=== PATIENT | female | born 1955 | race Caucasian/White ===

== ENCOUNTER 2018-09-30 20:41 | Inpatient (IN) | payer BC ==
[~2018-09-30] VITALS: Ht 152.4 cm; Wt 114.0 kg
[~2018-09-30 20:41] MED LIST: ADV100/50 IH; PROS INH; SYMBICORT INH; T3 PO; VITD PO
[2018-09-30 20:46] VITALS: Ht 152.4 cm; Wt 114.0 kg
--- NOTE | 2018-09-30 21:00 | NUR ---
PT PRESENTED TO ED FOR FRONTAL HEADACHE, INTERMITTENT DIZZINESS, GENERALIZED ABDOMINAL PAIN, "BLURRY VISION", SHAKINESS, AND "FLUTTERING" X 3 DAYS. PT STATES SHE HASNT TAKEN HER BLOOD PRESSURE MEDICATION FOR 3 WEEKS AND "I LOST IT MOVING FROM MY HOUSE TO MY DAUGHTERS HOUSE". PT STATES "I ALSO THINK I HAVE A URINARY TRACT INFECTION BECAUSE I HAVE INCREASED FREQUENCY AND IT HAS AN ODOR". PT STATES "MY RIGHT CALF GETS SWOLLEN ON AND OFF, ITS NOT BAD RIGHT NOW". PT IN NAD. BREATHING EVEN AND UNLABORED. PT A&0X4, SPEAKING FULL CLEAR SENTENCES. WILL CONTINUE TO MONITOR.
--- NOTE | 2018-09-30 21:01 | NUR ---
DR TURNER AT BEDSIDE FOR MSE.
--- NOTE | 2018-09-30 21:10 | NUR ---
PT AMBULATED TO RESTROOM WITH STEADY GAIT TO PROVIDE URINE SAMPLE.
--- NOTE | 2018-09-30 21:16 | NUR ---
LAB AT BEDSIDE
[2018-09-30 21:20] LABS: microscopic required? NO
[2018-09-30 21:27] LABS: UA SPECIFIC GRAVITY 1.025 (1.005-1.035); urine erythrocyte NEGATIVE (NEGATIVE)
[2018-09-30 21:30] LABS: BASOPHIL % 0.6 % (0-2); PLATELET COUNT 236 x10^3mcL (130-400); RED CELL DISTRIBUTION WIDTH 13.7 % (11.5-14.5)
[2018-09-30 21:36] LABS: CALCIUM 9.1 mg/dL (8.5-10.1); CARBON DIOXIDE 27.4 mmol/L (21-32); CHLORIDE SERUM 109 mmol/L (98-107); CREATININE SERUM 0.9 mg/dL (0.6-1.0); GFR1 > 60 mL/min; GLUCOSE SERUM 107 mg/dL (74-106); POTASSIUM SERUM 3.9 mmol/L (3.5-5.1); SODIUM SERUM 145 mmol/L (136-145)
--- NOTE | 2018-09-30 21:38 | NUR ---
EKG IN PROGRESS AT BEDSIDE BY EMT ROBERT.
[2018-09-30 21:47] LABS: ALBUMIN 3.5 g/dL (3.4-5.0); ALKALINE PHOSPHATASE 103 U/L (46-116); ALT/SGPT 32 U/L (14-59); AST/SGOT 16 U/L (15-37); BILIRUBIN TOTAL 0.2 mg/dL (0.20-1.00); FREE T4 1.07 ng/dL (0.76-1.46); LIPASE 80 IU/L (73-393)
--- NOTE | 2018-09-30 22:15 | NUR ---
ULTRASOUND AT BEDSIDE
--- NOTE | 2018-09-30 23:15 | NUR ---
PT TO CT VIA [facility] AT THIS TIME.
[2018-09-30] MEDS ORDERED: NOR10T PO (23:16)
[2018-09-30] MEDS ORDERED: LOSARTAN POTASS25 M1 PO (23:16)
[2018-09-30] MEDS ORDERED: VENLAFAXINE25 MG (23:17)
[2018-09-30] MEDS ORDERED: LORAZEPAM0.5 MG PO (23:18)
--- NOTE | 2018-09-30 23:35 | NUR ---
CALLED INTO CT FOR PT BEING ANXIOUS AND ATTEMPTING TO REFUSE CT SCAN. PT NOTED TO BE SHAKING AND STATING THAT SHE IS VERY CLAUSTROPHOBIC. PT GIVEN 1MG ATIVAN IVP PER DR YUE MANLEY. PT ASSISTED THROUGH CT SCAN SUCCESSFULLY.
--- NOTE | 2018-09-30 23:41 | NUR ---
REPORT GIVEN TO ALEXA FINN
--- NOTE | 2018-10-01 | NUR ---
PT TRANSFERRED TO [facility] BY [facility] BY MYSELF AND PORSCHE EMT. PT ON FULL CM FOR TRANSPORT. PT ACCEPTED BY GORAN RN TO ASSUME PT CARE. PT AOX4, RESP EVEN AND UNLABORED, NO ACUTE DISTRESS NOTED. PT AMBULATED FROM [facility] TO BED WITHOUT INCIDENT.
[2018-10-01 00:28] VITALS: BP 180/73
--- NOTE | 2018-10-01 00:31 | NUR ---
RECEIVED PT FROM ED VIA JIM. ORIENTED PT TO ROOM AND SURROUNDINGS. IV NOTED TO PATENT AND INTACT. TELE 22 PLACED ON PT READING NSR. INSTRUCTED PT ON THE USE OF CALL LIGHT FOR ASSISTANCE. ENDORSED PT TO PRIMARY NURSE GORAN
--- NOTE | 2018-10-01 00:31 | NUR ---
PT STATED WANTS TO EAT, STATED NEEDS NORCO 10/325MG FOR HER BACK PAIN. BP 180/73. INFORMED DR. LERNER
[2018-10-01 00:41] LABS: MAGNESIUM 1.9 mg/dL (1.8-2.4)
[2018-10-01 00:42] LABS: CHOLESTEROL/HDL RATIO 2.5
[2018-10-01 01:04] VITALS: BP 125/49
--- NOTE | 2018-10-01 01:16 | NUR ---
DR. LERNER WAS IN PT'S ROOM INFORMED BP 125/49. HE STATED TO HOLD ORDERED COZAAR DUE AT THIS TIME. ADMINISTERED NORCOL 7.5/325MG TABLET PO FOR COMPLAINT OF 8/10 PAIN TO THE BACK.
[2018-10-01 02:18] LABS: AMPHETAMINE QUAL UR NONE DETECTED (See below)
--- NOTE | 2018-10-01 02:51 | NUR ---
eyes closed, breathing even and unlabored on room air. sinus rhythm on tele. hr 67/min. call light within easy reach.
--- NOTE | 2018-10-01 03:49 | NUR ---
eyes closed, breathing unlabored. snoring lightly. call light within easy reach.
[2018-10-01 04:45] VITALS: BP 156/67
--- NOTE | 2018-10-01 06:18 | NUR ---
AWAKE AND ALERT, WAS ASSISTED TO AMBULATE TO RESTROOM EARLIER BY DANIELLE BARRERA. BREATHING EVEN AND UNLABORED ON ROOM AIR. IVF OF NS AT 100ML/HR INFUSING WELL TO NEW IV SITE TO RIGHT FOREARM.
--- NOTE | 2018-10-01 07:13 | NUR ---
AWAKE AND ALERT, STATED COMFORTABLE AT THIS TIME. IVF INFUSING WELL. IV SITE FREE FROM ERYTHEMA OR SWELLING. ENDORSED TO NURSE GARCIA AND MAT
--- NOTE | 2018-10-01 07:15 | NUR ---
RECEIVED PT IN BED, AXOX4, VERBAL, NIUEAN, CALM AND COOPERATIVE, PERRLA, NO REDNESS/DRAINAGE, ON TELE #22, NSR, RESP EVEN AND NON-LANORED, CHEST RISE SYMMETRICALLY, DENIES PAIN/PRESSURE/N/V/NEWELL/DIZZINES/FAINT, ABD ROUND AND NON-TENDER TO TOUCH, AMBULATORY, CONTINENT, LAST BM 09/30/18, PALP PULSES, CAP REFIL < 3 S, BS ACTIVE X 4, CALL LIGHT IN REACH, BED AT LOW POSITION, RAILS X 2, ALL NEEDS MET, CONTINUE TO MONTIOR
--- NOTE | 2018-10-01 08:45 | NUR ---
PT IN BED, IN NO ACUTE DISTRESS, AM MED GIEVN PER MD ORDER VIA EMAR, TAKEN WELL, NO ADVERSED SIDE EFFECT NOTED AT THIS TIME, SAFETY PROTOCOL FOLLOWED, CONTINUE TO MONITOR
[2018-10-01 08:47] VITALS: BP 129/62
--- NOTE | 2018-10-01 09:30 | NUR ---
ECHOCARDIOGRAM DONE AT BED SIDE, PT IN NO ACUTE DISTRESS, CONTINUE TO MONTIOR
--- NOTE | 2018-10-01 10:45 | NUR ---
PT IN BED, IN NO ACUTE DISTRESS, REFILLED ICE WATER PER PT REQUEST, PT ASK FOR SPRITE, NOT CONTRAINDICATED WITH DIET, GIVEN, TAKEN WELL, CONTINUE TO MONITOR
--- NOTE | 2018-10-01 10:53 | NUR ---
I HAVE REVIEWED THE DATA COLLECTION BY HUMA RODRIGUEZ(NAME):MAT SAENZ ENTERED ON (DATE/TIME):10/01/18 AT 1053 I CONCUR WITH THE DATA AND ANY EXCEPTIONS OR COMMENTS ARE LISTED BELOW:
--- NOTE | 2018-10-01 10:56 | NUR ---
P.T. NOTES P.T. EVAL COMPLETED; NURSING TO [facility] AD [facility].
[2018-10-01 12:32] VITALS: BP 157/65
[2018-10-01 12:35] VITALS: BP 157/65
--- NOTE | 2018-10-01 13:47 | NUR ---
PT RESTING IN BED, VERBAL, IN NO ACUTE DISTRESS, RESP EVENAND NON-LABORED, DENIES PAIN/CP/PRESSURE, DENIES N/V/NEWELL, DC PAPER SIGNED AND PUT IN CHART, EDUCATION GIVEN, VERBALLY UNDERSTANDING, IV REMOVED TO (R) FA , IV CATH INTACT AND PATENT, NO BLEEDING NOTED, AMBULATORY, AT BEDSIDE, PT AWARE WILL BE ASSISTED TO LOBBY VIA WC BY NURSING STAFF.
--- NOTE | 2018-10-01 13:57 | NUR ---
TELE MONITOR #22 REMOVED AND RETURN TO TILE HELPER SALAZAR
--- NOTE | 2018-10-01 14:33 | NUR ---
ECHOCARDIOGRAM NOT DONE-DISCHARGED
== END 2018-10-01 14:24 | disposition home or self-care (01) | DRG 74 ==
LOC: ED 20:41 → DU 23:26
PROVIDERS: Emergency Medicine; ADMIT Internal Medicine
DX: G90.8 Other disorders of autonomic nervous system (principal); G44.209 Tension-type headache, unspecified, not intractable; I10 Essential (primary) hypertension; J45.909 Unspecified asthma, uncomplicated; F41.8 Other specified anxiety disorders; G89.29 Other chronic pain; M54.5 Low back pain; Z82.49 Family history of ischemic heart disease and other diseases of the circulatory system; Z80.9 Family history of malignant neoplasm, unspecified; Z91.14 Patient's other noncompliance with medication regimen
CPT/HCPCS: 82962; 83880; 84439; G0378; J2060; J2765; J7040; Q0092; Q0162